=== PATIENT | female | born 1995 | race Two or more races ===

== ENCOUNTER 2016-10-13 07:11 | Outpatient (CLI) | payer BC, OTHER | END 2016-10-13 07:12 | disposition home or self-care (01) | DX: Z00.00 Encounter for general adult medical examination without abnormal findings (principal); R74.8 Abnormal levels of other serum enzymes ==

== ENCOUNTER 2017-10-08 13:00 | Outpatient (CLI) | payer BC, OTHER | END 2017-10-08 13:01 | disposition home or self-care (01) | LOC: LAB.WCP 13:00 | PROVIDERS: ATTEND Family Medicine | DX: J02.9 Acute pharyngitis, unspecified (principal) | CPT/HCPCS: 87070 ==

== ENCOUNTER 2019-01-18 04:17 | Emergency (ER) | payer BC, MEDICAID ==
[2019-01-18 04:29] VITALS: BP 136/93
--- NOTE | 2019-01-18 04:41 | ED Physician Documentation ---
PD HPI FEMALE - Stated complaint Stated Complaint: FEM - Chief complaint Chief Complaint: General - History obtained from History obtained from: Patient - History of Present Illness Timing - onset: Last night Timing - duration: Hours (8-10) Timing - details: Abrupt onset, Still present Associated symptoms: Dysuria, Urinary frequency, Hematuria. No: Fever, Back pain, Pelvic pain, Vaginal discharge Contributing factors: No: Exposed to STD Recently seen: Not recently seen Review of Systems Constitutional: reports: Chills. denies: Fever, Myalgias Nose: denies: Rhinorrhea / runny nose, Congestion Throat: denies: Sore throat Respiratory: denies: Cough GI: denies: Nausea, Vomiting, Diarrhea : reports: Dysuria, Frequency. denies: Discharge PD PAST MEDICAL HISTORY - Past Medical History Cardiovascular: None Respiratory: None Neuro: None Psych: Depression, Anxiety, ADD/ADHD, Post traumatic stress disorder Musculoskeletal: None - Present Medications Home Medications: Ambulatory Orders Medication Instructions Recorded Confirmed Phenazopyridine HCl [Pyridium] 100 mg PO TID PRN #15 tablet 01/18/19 Sulfamethox/Trimeth 800/160 1 each PO BID #14 tablet 01/18/19 [Bactrim Ds 800/160] - Allergies Allergies/Adverse Reactions: Allergies Allergy/AdvReac Type Severity Reaction Status Date / Time No Known Drug Allergies Allergy Verified 01/18/19 04:28 PD ED PE NORMAL - Vitals Vital signs reviewed: Yes - General General: Alert and oriented X 3, No acute distress, Well developed/nourished - Abdomen Abdomen: Soft, Non tender - Female Female : Deferred - Back Back: No CVA TTP - Derm Derm: Normal color, Warm and dry Results - Vitals Vitals: Vital Signs - 24 hr 01/18/19 04:27 Temperature 36.8 C Heart Rate 90 Respiratory 17 Rate Blood Pressure 136/93 H O2 Saturation 100 Oxygen O2 Source Room air - Labs Labs: Laboratory Tests 01/18/19 04:30 Urine Color DARK YELLOW Urine Clarity SL. CLOUDY Urine pH 5.5 Ur Specific [place] >=1.030 H Urine Protein >=300 H Urine Glucose (UA) NEGATIVE Urine Ketones TRACE Urine Occult Blood LARGE H Urine Nitrite NEGATIVE Urine Bilirubin NEGATIVE Urine Urobilinogen 1 (NORMAL) Ur Leukocyte Esterase SMALL H Urine RBC TNTC H Urine WBC >25 H Ur Squamous Epith Cells RARE Squamous Urine Bacteria Moderate H Ur Microscopic Review INDICATED Urine Culture Comments INDICATED Urine HCG, Qual NEGATIVE Departure - Departure Disposition: 01 Home, Self Care Clinical Impression: UTI (urinary tract infection) Qualifiers: Urinary tract infection type: acute cystitis Hematuria presence: with hematuria Qualified Code(s): N30.01 - Acute cystitis with hematuria Condition: Stable Record reviewed to determine appropriate education?: Yes Instructions: ED UTI Cystitis Female Follow-Up: Tamica Brown DO [Primary Care Provider] - Prescriptions: Phenazopyridine HCl [Pyridium] 100 mg PO TID PRN #15 tablet PRN Reason: Abdominal Pain Sulfamethox/Trimeth 800/160 [Bactrim Ds 800/160] 1 each PO BID #14 tablet Comments: Stay well-hydrated. Tylenol or ibuprofen if needed for pains or discomfort. Phenazopyridine can be used to help with urinary discomfort. Able to do urine a little orange-colored so not to worry. Bactrim antibiotic twice daily for a week. The urine culture will result in 2 to 3 days and if we need to change the antibiotic based on that we will give you a call.
[2019-01-18 04:45] LABS: GLUCOSE, URINE (UA) NEGATIVE (NEGATIVE); KETONES,URINE (UA) TRACE mg/dL (NEGATIVE); LEUKOCYTE ESTERASE, URINE SMALL (NEGATIVE); NITRITE,URINE NEGATIVE (NEGATIVE); OCCULT BLOOD,URINE LARGE (NEGATIVE); PH,URINE 5.5 PH (5.0-7.5); PROTEIN,URINE >=300 mg/dL (NEGATIVE); UROBILINOGEN,URINE 1 (NORMAL) E.U./dL (NORMAL)
[2019-01-18 04:52] LABS: CLARITY,URINE SL. CLOUDY (CLEAR); HCG UR QUAL NEGATIVE
[2019-01-18] MEDS ORDERED: PHENAZOPYRIDINE 100 MG TABLET PO STA (04:52)
[2019-01-18] MEDS ORDERED: SULFAMETH/TRIMETH DS 800/160 MG TABLET PO STA (04:52)
[2019-01-18 04:56] LABS: BILIRUBIN,URINE NEGATIVE (NEGATIVE); ICTOTEST,URINE NEGATIVE
[2019-01-18 05:00] LABS: BACTERIA,URINE Moderate /HPF (None Seen); RBC,URINE TNTC /HPF (0-5); SQUAMOUS EPITHELIAL CELL,UR RARE Squamous (<= Few)
== END 2019-01-18 05:11 | disposition home or self-care (01) ==
LOC: ED 04:17
DX: N30.01 Acute cystitis with hematuria (principal)
CPT/HCPCS: 81001; 81025; 87086; 99283; A9270; 81003

== ENCOUNTER 2019-01-27 | Outpatient (CLI) | payer MEDICAID | END 2019-01-27 23:59 | disposition home or self-care (01) | DX: R10.2 Pelvic and perineal pain (principal) ==

== ENCOUNTER 2019-04-25 07:00 | Outpatient (CLI) | payer MEDICAID ==
[2019-04-25 18:47] LABS: BASOPHILS % (AUTO) 0.5 %; EOSINOPHILS # (AUTO) 0.1 10^3/uL (0.0-0.7); HGB - HEMOGLOBIN 13.4 g/dL (12.0-16.0); LYMPHOCYTES # (AUTO) 1.8 10^3/uL (1.5-3.5); LYMPHOCYTES % (AUTO) 22.1 %; MEAN CORPUSCULAR HEMOGLOBIN 26.7 pg (27.0-31.0); MEAN CORPUSCULAR HGB CONC 30.9 g/dL (32.0-36.0); MEAN CORPUSCULAR VOLUME 86.3 fL (81.0-99.0); MONOCYTES # (AUTO) 0.9 10^3/uL (0.0-1.0); MONOCYTES % (AUTO) 10.7 %; NEUTROPHILS # (AUTO) 5.3 10^3/uL (1.5-6.6); NEUTROPHILS % (AUTO) 65.3 %; PLT - PLATELET COUNT 296 10^3/uL (130-450); RED BLOOD COUNT 5.02 10^6/uL (4.20-5.40); WHITE BLOOD COUNT 8.1 x10^3/uL (4.8-10.8)
[2019-04-25 20:37] LABS: ALBUMIN 4.1 g/dL (3.2-5.5); BILIRUBIN,TOTAL 0.6 mg/dL (0.2-1.0); CALCIUM 9.6 mg/dL (8.5-10.3); CREATININE 0.6 mg/dL (0.4-1.0); TOTAL PROTEIN 8.1 g/dL (6.7-8.2)
[2019-04-25 21:36] LABS: HB2 TOTAL 14.6 g/dL; HEMOGLOBIN A1C 0.51 g/dL; HEMOGLOBIN A1C % 5.3 % (4.6-6.2)
== END 2019-04-25 23:59 | disposition home or self-care (01) ==
LOC: LAB.WCP 07:00
PROVIDERS: ATTEND Physician Assistant
DX: E03.9 Hypothyroidism, unspecified (principal); Z13.1 Encounter for screening for diabetes mellitus; R20.2 Paresthesia of skin; F41.9 Anxiety disorder, unspecified
CPT/HCPCS: 36415; 80053; 83036; 84443; 85025

== ENCOUNTER 2019-06-15 16:36 | Outpatient (CLI) | payer MEDICAID | END 2019-06-15 23:59 | disposition home or self-care (01) | LOC: LAB.R 16:36 | PROVIDERS: ATTEND Family Medicine | DX: L08.89 Other specified local infections of the skin and subcutaneous tissue (principal) | CPT/HCPCS: 87070; 87181; 87205 ==

== ENCOUNTER 2021-06-05 08:00 | Outpatient (CLI) | payer MEDICAID | END 2021-06-05 23:59 | LOC: LAB.N 08:00 | PROVIDERS: ATTEND Physician Assistant | DX: R39.9 Unspecified symptoms and signs involving the genitourinary system (principal) | CPT/HCPCS: 87086; 87181 ==

== ENCOUNTER 2021-08-20 08:00 | Outpatient (CLI) | payer MEDICAID ==
--- NOTE | 2021-08-20 16:55 | XRAY Report ---
PROCEDURE: Ankle 3 View RT INDICATIONS: SPRAIN OF LIGAMENT OF R ANKLE TECHNIQUE: 3 views of the ankle were acquired. COMPARISON: None. FINDINGS: BONES: No acute, displaced fracture or dislocation. The ankle mortise is maintained on these nonstre ssed views. SOFT TISSUES: Faint calcifications are seen anterior and posterior to the tibiotalar joint, which may reflect intra-articular bodies and/or soft tissue calcification. IMPRESSION: 1.No acute osseous abnormality. Reviewed by: Micha dEuardo MD on 08/20/2021 4:54 PM PST Approved by: Micha Eduardo MD on 08/20/2021 4:54 PM PST Station ID: [id number]
== END 2021-08-20 23:59 | disposition home or self-care (01) ==
LOC: DI.N 08:00
PROVIDERS: ATTEND Physician Assistant Medical
DX: S93.401A Sprain of unspecified ligament of right ankle, initial encounter (principal)

== ENCOUNTER 2022-08-19 11:05 | Outpatient (CLI) | payer MEDICAID ==
[2022-08-19 18:03] LABS: BASOPHILS # (AUTO) 0.1 10^3/uL (0.0-0.1); BASOPHILS % (AUTO) 0.7 %; EOSINOPHILS # (AUTO) 0.1 10^3/uL (0.0-0.7); EOSINOPHILS % (AUTO) 1.5 %; HCT - HEMATOCRIT 38.8 % (37.0-47.0); LYMPHOCYTES # (AUTO) 3.1 10^3/uL (1.5-3.5); MEAN CORPUSCULAR HEMOGLOBIN 24.2 pg (27.0-31.0); MEAN CORPUSCULAR HGB CONC 30.9 g/dL (32.0-36.0); MEAN CORPUSCULAR VOLUME 78.4 fL (81.0-99.0); MEAN PLATELET VOLUME 11.2 fL (7.9-10.8); MONOCYTES # (AUTO) 0.9 10^3/uL (0.0-1.0); NEUTROPHILS # (AUTO) 4.7 10^3/uL (1.5-6.6); NEUTROPHILS % (AUTO) 52.6 %; PLT - PLATELET COUNT 406 10^3/uL (130-450); RED BLOOD COUNT 4.95 10^6/uL (4.20-5.40); RED CELL DISTRIBUTION WIDTH 17.4 % (12.0-15.0); WHITE BLOOD COUNT 8.9 x10^3/uL (4.8-10.8)
[2022-08-19 18:25] LABS: ALBUMIN 3.7 g/dL (3.2-5.5); ALBUMIN/GLOBULIN RATIO 0.8 (1.0-2.2); ALKALINE PHOSPHATASE 216 IU/L (42-121); ALT ALANINE AMINOTRANSFERASE 57 IU/L (10-60); AST ASPARTATE AMINOTRANSFERASE 58 IU/L (10-42); BILIRUBIN,TOTAL 0.5 mg/dL (0.2-1.0); BUN - BLOOD UREA NITROGEN 11 mg/dL (6-20); CALCIUM 9.9 mg/dL (8.5-10.3); CARBON DIOXIDE - CO2 27 mmol/L (21-32); CHLORIDE 103 mmol/L (101-111); CHOL/HDL RATIO 2.1 (<4.4); CHOLESTEROL 184 mg/dL; CREATININE 0.6 mg/dL (0.4-1.0); GFR - MDRD 118 (>89); GLUCOSE 91 mg/dL (70-100); HDL CHOLESTEROL 88 mg/dL; LDL CHOLESTEROL,CALCULATED 80 mg/dL; LDL/HDL RATIO 0.9 (<4.4); POTASSIUM 4.5 mmol/L (3.5-5.0); SODIUM 140 mmol/L (135-145); TOTAL PROTEIN 8.1 g/dL (6.7-8.2); TRIGLYCERIDES 81 mg/dL; VLDL CHOLESTEROL 16 mg/dL
[2022-08-19 18:34] LABS: THYROID STIMULATING HORMONE 4.33 uIU/mL (0.34-5.60)
[2022-08-19 21:12] LABS: ESTIMATED AVERAGE GLUCOSE 120 mg/dL (70-100); HEMOGLOBIN A1c% 5.8 % (4.27-6.07)
== END 2022-08-19 11:06 | disposition home or self-care (01) ==
LOC: LAB.N 11:05
PROVIDERS: ATTEND Physician Assistant
DX: E03.9 Hypothyroidism, unspecified (principal); Z13.9 Encounter for screening, unspecified; E66.9 Obesity, unspecified
CPT/HCPCS: 36415; 80053; 80061; 83036; 83721; 84443; 85025

== ENCOUNTER 2023-11-13 10:05 | Outpatient (CLI) | payer MEDICAID ==
[2023-11-13 15:13] LABS: BASOPHILS # (AUTO) 0.1 10^3/uL (0.0-0.1); BASOPHILS % (AUTO) 0.4 %; EOSINOPHILS # (AUTO) 0.1 10^3/uL (0.0-0.7); EOSINOPHILS % (AUTO) 1.1 %; HCT - HEMATOCRIT 42.7 % (37.0-47.0); HGB - HEMOGLOBIN 13.5 g/dL (12.0-16.0); LYMPHOCYTES # (AUTO) 2.7 10^3/uL (1.5-3.5); LYMPHOCYTES % (AUTO) 23.9 %; MEAN CORPUSCULAR HEMOGLOBIN 27.4 pg (27.0-31.0); MEAN CORPUSCULAR HGB CONC 31.6 g/dL (32.0-36.0); MEAN CORPUSCULAR VOLUME 86.6 fL (81.0-99.0); MEAN PLATELET VOLUME 11.6 fL (7.9-10.8); MONOCYTES % (AUTO) 8.8 %; NEUTROPHILS # (AUTO) 7.3 10^3/uL (1.5-6.6); NEUTROPHILS % (AUTO) 65.4 %; PLT - PLATELET COUNT 298 10^3/uL (130-450); RED BLOOD COUNT 4.93 10^6/uL (4.20-5.40); RED CELL DISTRIBUTION WIDTH 14.6 % (12.0-15.0); WHITE BLOOD COUNT 11.2 x10^3/uL (4.8-10.8)
[2023-11-13 20:32] LABS: ESTIMATED AVERAGE GLUCOSE 114 mg/dL (70-100); HEMOGLOBIN A1c% 5.6 % (4.27-6.07)
== END 2023-11-13 10:06 | disposition home or self-care (01) ==
LOC: LAB.S 10:05
PROVIDERS: ATTEND Physician Assistant
DX: R79.89 Other specified abnormal findings of blood chemistry (principal); R71.8 Other abnormality of red blood cells; R73.03 Prediabetes
CPT/HCPCS: 36415; 80053; 83036; 85025